=== PATIENT | female | born 1965 | race African-American/Black ===

== ENCOUNTER 2022-09-30 08:25 | Emergency (ER) | payer MEDICARE, MEDICAID ==
[~2022-09-30] VITALS: Ht 172.7 cm; Wt 74.0 kg
[2022-09-30 09:42] LABS: BASOPHILS % 0.8 % (0.0-2.0); EOSINOPHILS % 2.1 % (0.0-5.0); HEMATOCRIT. 40.7 % (36.0-48.0); LYMPHOCYTES % 29.3 % (20.0-50.0); MEAN CORPUSCULAR HEMOGLOBIN 29.7 pg (28.0-32.0); MEAN CORPUSCULAR VOLUME 86.4 fL (81.0-99.0); MEAN PLATELET VOLUME 8.8 fl (7.4-10.4); MONOCYTES % 5.1 % (2.0-8.0); NEUTROPHILS % 62.7 % (40.0-76.0); PLATELET 181 x1000/uL (130-400); RED BLOOD CELL COUNT 4.72 mill/uL (4.2-5.4); RED CELL DISTRIBUTION WIDTH 14.3 % (11.6-14.6)
[2022-09-30 09:50] LABS: CHLORIDE 106 mEq/L (98-107)
[2022-09-30 10:00] VITALS: BP 112/74
== END 2022-09-30 12:58 | disposition home or self-care (01) ==
LOC: ER 08:25
DX: H93.11 Tinnitus, right ear (principal); F41.9 Anxiety disorder, unspecified; I10 Essential (primary) hypertension
CPT/HCPCS: 36415; 80053; 85025; 99284